=== PATIENT | male | born 1965 | race Caucasian/White ===

== ENCOUNTER 2020-09-08 17:47 | Inpatient (IN) | payer OTHER ==
[2020-09-08 18:34] LABS: BASO % 0.6 % (0-2.0); EOS % 3.4 % (0-4.5); HEMATOCRIT 42.7 % (35.4-49); HEMOGLOBIN 14.2 GM/dL (11.7-16.9); LYMPH % 34.5 % (8-40); MCH 30.3 pg (25.7-33.7); MCHC 33.3 g/dl (32.0-35.9); MEAN CELL VOLUME 91.2 fl (80-96); MEAN PLT VOLUME 7.8 fl (7.5-11.1); MONO % 8.9 % (3.8-10.2); NEUT % 52.6 % (42.8-82.8); PLATELET COUNT 285 K/MM3 (134-434); RBC 4.68 M/mm3 (4.00-5.60); RDW 13.5 % (11.9-15.9); WHITE BLOOD COUNT 7.5 K/mm3 (4.0-10.0)
[2020-09-08] MEDS ORDERED: ASPIRIN 325 MG TABLET PO ONE (18:39)
[2020-09-08] MEDS ORDERED: ATORVASTATIN CA 80 MG TABLET (FP) PO ONE (18:39)
[2020-09-08] MEDS ORDERED: ASPIRIN 325 MG ENTERIC COATED TABLET (FP) ONE (18:45)
[2020-09-08] MEDS ORDERED: ATORVASTATIN CA 80 MG TABLET (FP) ONE (18:45)
[2020-09-08 18:46] LABS: INR 0.87 (0.83-1.09); PROTHROMBIN TIME (PATIENT) 10.8 SEC (9.7-13.0)
[2020-09-08 18:54] LABS: CHLORIDE 102 mmol/L (98-107); POTASSIUM 3.8 mmol/L (3.5-5.1); SODIUM 137 mmol/L (136-145)
[2020-09-08 18:55] LABS: ALBUMIN 4.1 g/dl (3.4-5.0); ANION GAP 4 MMOL/L (8-16); BLOOD UREA NITROGEN 17.5 mg/dL (7-18); CALCIUM 8.9 mg/dL (8.5-10.1); CO2 31 mmol/L (21-32)
[2020-09-08 18:56] LABS: GLUCOSE,RANDOM 96 mg/dL (74-106)
[2020-09-08 18:58] LABS: CHOLESTEROL 305 mg/dL (50-200); LDL CHOLESTEROL (ONLY SJRH) 226 mg/dL (5-100); MAGNESIUM 2.3 mg/dL (1.8-2.4); TRIGLYCERIDES 121 mg/dL (0-150)
[2020-09-08 18:59] LABS: CREATININE 0.8 mg/dL (0.55-1.3); SGOT/AST 37 U/L (15-37); SGPT/ALT 59 U/L (13-61)
[2020-09-08 19:00] LABS: BILIRUBIN,TOTAL 0.3 mg/dL (0.2-1); HDL CHOLESTEROL 54 mg/dL (40-60); TOT PROT 7.7 g/dl (6.4-8.2)
[2020-09-08 19:01] LABS: ALK PHOS 113 U/L (45-117)
[2020-09-08] MEDS ORDERED: CLOPIDOGREL BISULFATE 300 MG TABLET PO ONE (20:22)
[2020-09-08] MEDS ORDERED: ASPIRIN 81 MG CHEWABLE TABLETS PO ONE (20:22)
[2020-09-08] MEDS ORDERED: CLOPIDOGREL BISULFATE 300 MG TABLET ONE (21:14)
[2020-09-08 21:28] LABS: PH,URINE 7.5 (5.0-8.0); URINE APPEARANCE CLEAR; URINE BILIRUBIN NEGATIVE (NEGATIVE); URINE COLOR YELLOW; URINE GLUCOSE (UA) NEGATIVE (NEGATIVE); URINE KETONE NEGATIVE (NEGATIVE); URINE LEUK ESTERASE NEGATIVE (NEGATIVE); URINE NITRITE NEGATIVE (NEGATIVE); URINE PROTEIN NEGATIVE (NEGATIVE); URINE UROBILINOGEN 0.2 mg/dL (0.2-1.0)
[2020-09-09 07:50] LABS: BASO % 0.4 % (0-2.0); HEMATOCRIT 40.8 % (35.4-49); HEMOGLOBIN 13.6 GM/dL (11.7-16.9); LYMPH % 32.4 % (8-40); MCHC 33.2 g/dl (32.0-35.9); MEAN CELL VOLUME 90.3 fl (80-96); MONO % 8.4 % (3.8-10.2); NEUT % 54.8 % (42.8-82.8); PLATELET COUNT 262 K/MM3 (134-434); RBC 4.52 M/mm3 (4.00-5.60); RDW 13.4 % (11.9-15.9); WHITE BLOOD COUNT 6.6 K/mm3 (4.0-10.0)
[2020-09-09 08:13] LABS: POTASSIUM 3.8 mmol/L (3.5-5.1)
[2020-09-09 08:26] LABS: ALBUMIN 3.6 g/dl (3.4-5.0); BLOOD UREA NITROGEN 15.2 mg/dL (7-18); CALCIUM 8.7 mg/dL (8.5-10.1); MAGNESIUM 2.3 mg/dL (1.8-2.4)
[2020-09-09 08:29] LABS: BILIRUBIN,TOTAL 0.9 mg/dL (0.2-1); CREATININE 0.8 mg/dL (0.55-1.3); PHOSPHOROUS 3.5 mg/dL (2.5-4.9); TOT PROT 6.6 g/dl (6.4-8.2)
[2020-09-09] MEDS ORDERED: ASPIRIN COATED 81 MG TABLET.EC ONE (10:46)
[2020-09-09] MEDS: ASPIRIN COATED 81 MG TABLET.EC PO SCH (10:56)
[2020-09-09 14:18] VITALS: BMI 31.4
[2020-09-09] MEDS ORDERED: FLU VACCINE (FLULAVAL) PF 60 MCG/0.5 ML SYRINGE 2020-2021 IM ONE (16:00)
[2020-09-09] MEDS ORDERED: ATORVASTATIN CA 80 MG TABLET (FP) PO SCH (22:00)
[2020-09-10 07:40] LABS: BASO % 0.6 % (0-2.0); EOS % 3.5 % (0-4.5); HEMATOCRIT 41.2 % (35.4-49); LYMPH % 27.9 % (8-40); MCH 30.7 pg (25.7-33.7); MCHC 34.1 g/dl (32.0-35.9); MEAN CELL VOLUME 90.2 fl (80-96); MEAN PLT VOLUME 7.8 fl (7.5-11.1); MONO % 8.4 % (3.8-10.2); NEUT % 59.6 % (42.8-82.8); PLATELET COUNT 272 K/MM3 (134-434); RBC 4.57 M/mm3 (4.00-5.60); RDW 13.3 % (11.9-15.9); WHITE BLOOD COUNT 8.1 K/mm3 (4.0-10.0)
[2020-09-10 07:51] LABS: POTASSIUM 3.8 mmol/L (3.5-5.1)
[2020-09-10 07:58] LABS: BLOOD UREA NITROGEN 19.6 mg/dL (7-18)
[2020-09-10 08:06] LABS: ALBUMIN 3.4 g/dl (3.4-5.0); MAGNESIUM 2.2 mg/dL (1.8-2.4)
[2020-09-10 08:09] LABS: CALCIUM 8.6 mg/dL (8.5-10.1)
[2020-09-10 08:11] LABS: TOT PROT 6.5 g/dl (6.4-8.2)
[2020-09-10 08:13] LABS: CREATININE 0.8 mg/dL (0.55-1.3); PHOSPHOROUS 3.5 mg/dL (2.5-4.9)
[2020-09-10] MEDS: ASPIRIN COATED 81 MG TABLET.EC PO SCH (09:24)
[2020-09-10 09:39] VITALS: BP 137/93; PULSE 79; TEMP 98.7
[2020-09-10] MEDS ORDERED: ENOXAPARIN NA (PORCINE) 40 MG/0.4 ML DISP.SYRIN SQ SCH (10:00)
== END 2020-09-10 14:05 | disposition home or self-care (01) | DRG 66 ==
LOC: JER 17:47 → JERBED 20:01 → J4S 09-09 11:51
PROVIDERS: ADMIT Internal Medicine; ATTEND Student in an Organized Health Care Education/Training Program
DX: I63.9 Cerebral infarction, unspecified (principal); E78.5 Hyperlipidemia, unspecified; I10 Essential (primary) hypertension; E66.9 Obesity, unspecified; R94.31 Abnormal electrocardiogram [ECG] [EKG]; Z68.31 Body mass index [BMI] 31.0-31.9, adult
CPT/HCPCS: 36415; 70450-TC; 70551-TC; 71045-TC-FY; 80053; 80061; 81003; 82550; 82553; 82962; 83090; 83721; 83735; 84100; 84443; 84484; 85025; 85610; 85730; 86850; 86900; 86901; 87086; 93005; 93010; 93306-TC; 93880-TC; 97116-GP; 97161-GP; 99285-25; C9803; G0008; Q2036; U0003